=== PATIENT | female | born 1935 | race Caucasian/White ===

== ENCOUNTER 2018-12-23 12:16 | Observation (INO) | payer MEDICARE ==
[~2018-12-23] VITALS: Ht 152.4 cm; Wt 81.6 kg
[2018-12-23] MEDS ORDERED: BETA BLOCKER (12:24)
[2018-12-23] MEDS ORDERED: PLAVIX (12:24)
[2018-12-23] MEDS ORDERED: ASPIRIN (12:24)
[2018-12-23] MEDS ORDERED: DILANTIN (12:24)
[2018-12-23] MEDS ORDERED: LIDOCAINE 1%-EPI 1:100K, 20ML INFIL ONE (12:30)
[2018-12-23] MEDS ORDERED: DIPH,PERTUSS(ACELL),TET VAC/PF 0.5 ML IM-VACC ONE ×2 (12:30→12:38)
[2018-12-23] MEDS ORDERED: LIDOCAINE-MPF 1%, 5ML ONE (12:38)
[2018-12-23] MEDS ORDERED: ACETAMINOPHEN 325 MG TABLET ONE (12:38)
[2018-12-23] MEDS ORDERED: ACETAMINOPHEN 325 MG TABLET PO ONE (13:00)
--- NOTE | 2018-12-23 13:19 | NUR ---
ALL RESULTS BACK AT THIS TIME. CHART UP FOR RECHECK.
--- NOTE | 2018-12-23 14:36 | NUR ---
MULTIPLE RNs AND TECHS ATTEMPTING IV AT THIS TIME.
--- NOTE | 2018-12-23 14:37 | NUR ---
PT TO ED FOR MGLF. LAC TO LEFT EYEBROW. -LOC OR DIZZINESS. +BLOOD THINNERS, PLAVIX AND ASA. LAC SUTURES COMPLETE.
--- NOTE | 2018-12-23 15:01 | NUR ---
PT RESTING IN [facility]. VSS. LAB AT TO DRAW. STILL UNABLE TO ESTABLISH IV ACCESS.
[2018-12-23 15:23] LABS: ALBUMIN 3.9 g/dL (3.4-5.0); ANION GAP 6 mmol/L (5-15); CALCIUM 8.8 mg/dL (8.5-10.1); CHLORIDE 98 mmol/L (98-107); CREATININE 0.69 mg/dL (0.55-1.02)
--- NOTE | 2018-12-23 15:44 | NUR ---
hospitalist pa to bs for assessment. vss. iv established. plan to admit. awaiting room assignment.
[2018-12-23 15:45] LABS: BASOPHILS # (AUTO) 0.03 x10^3/uL (0-0.1); BASOPHILS % (AUTO) 0 % (0-1); EOSINOPHILS # (AUTO) 0.15 x10^3/uL (0-0.4); EOSINOPHILS % (AUTO) 2 % (1-7); LYMPHOCYTES % (AUTO) 16 % (22-44); MD NO; MEAN CORPUSCULAR HEMOGLOBIN 30.3 pg (27.0-34.8); MEAN CORPUSCULAR HGB CONC 33.3 g/dL (32.4-35.8); MEAN CORPUSCULAR VOLUME 91.1 fL (80-100); MONOCYTES # (AUTO) 0.86 x10^3/uL (0.2-0.8); MONOCYTES % (AUTO) 11 % (2-9); NEUTROPHILS # (AUTO) 5.88 x10^3/uL (1.8-6.8); NEUTROPHILS % (AUTO) 72 % (42-75); PLATELET COUNT 228 x10^3/uL (130-400); RED BLOOD COUNT 5.31 x10^6/uL (3.82-5.3); RED CELL DISTRIBUTION WIDTH 14.6 % (9.6-15.2)
[2018-12-23] MEDS ORDERED: SODIUM CHLORIDE 0.9% 1,000 ML IV SCH (16:13)
[2018-12-23 16:14] LABS: PROTHROMBIN TIME 10.5 Seconds (9.6-11.5)
[2018-12-23] MEDS ORDERED: ENALAPRILAT 1.25 MG/ML, 2ML IVPush PRN (16:30)
[2018-12-23] MEDS ORDERED: LABETALOL 5MG/ML, 20ML IVPush PRN (16:30)
[2018-12-23] MEDS: PLEASE ENTER ALLERGIES MC SCH (17:00)
--- NOTE | 2018-12-23 17:02 | NUR ---
pt resting in room. vss. no needs expressed. call light within reach. awaiting room assignment.
--- NOTE | 2018-12-23 18:13 | NUR ---
break rn: pt resting on gurney. no c/o pain. no needs requested at this time. pt a&ox4. no acute distress noted.
--- NOTE | 2018-12-23 18:23 | NUR ---
BREAK RN: REPORT JOVITA BUCK. ALL QUESTIONS ANSWERED.
[2018-12-23 19:38] VITALS: BP 144/85
[2018-12-23 20:55] VITALS: BP 142/88
[2018-12-23] MEDS ORDERED: METO25TA35 PO (22:27)
[2018-12-23] MEDS ORDERED: CHOL400C11 PO (22:27)
[2018-12-23] MEDS ORDERED: AMLO10TA8 PO (22:27)
[2018-12-23] MEDS ORDERED: ATOR40TA78 PO (22:27)
[2018-12-23] MEDS ORDERED: PANT40TA5 PO (22:27)
[2018-12-23] MEDS ORDERED: PHEN100C PO (22:27)
[2018-12-23] MEDS ORDERED: HYDR12.517 PO (22:27)
[2018-12-23] MEDS ORDERED: CLOP75TA PO (22:27)
[2018-12-23 23:57] VITALS: BP 128/67
[2018-12-24] MEDS: PLEASE ENTER ALLERGIES MC SCH ×2 (01:00→07:23)
[2018-12-24 01:14] VITALS: BP 149/82
[2018-12-24] MEDS ORDERED: PHEN100C PO (01:29)
[2018-12-24] MEDS ORDERED: PHENYTOIN 200 MG HOMEMEDPO SCH (01:30)
[2018-12-24 02:13] VITALS: BP 144/85
[2018-12-24 06:12] LABS: BASOPHILS # (AUTO) 0.03 x10^3/uL (0-0.1); BASOPHILS % (AUTO) 0 % (0-1); EOSINOPHILS # (AUTO) 0.12 x10^3/uL (0-0.4); EOSINOPHILS % (AUTO) 2 % (1-7); LYMPHOCYTES # (AUTO) 1.03 x10^3/uL (1-3.4); LYMPHOCYTES % (AUTO) 16 % (22-44); MD NO; MEAN CORPUSCULAR HGB CONC 33.3 g/dL (32.4-35.8); MEAN PLATELET VOLUME 7.5 fL (7.4-10.4); MONOCYTES # (AUTO) 0.84 x10^3/uL (0.2-0.8); MONOCYTES % (AUTO) 13 % (2-9); NEUTROPHILS # (AUTO) 4.63 x10^3/uL (1.8-6.8); NEUTROPHILS % (AUTO) 70 % (42-75); PLATELET COUNT 225 x10^3/uL (130-400); RED BLOOD COUNT 4.77 x10^6/uL (3.82-5.3); RED CELL DISTRIBUTION WIDTH 14.8 % (9.6-15.2)
[2018-12-24 06:24] LABS: ANION GAP 7 mmol/L (5-15); CALCIUM 8.5 mg/dL (8.5-10.1); CHLORIDE 103 mmol/L (98-107); CREATININE 0.52 mg/dL (0.55-1.02)
[2018-12-24 07:42] VITALS: BP 153/84
[2018-12-24] MEDS ORDERED: ONDANSETRON 2MG/ML, 2ML IVPush PRN (08:30)
[2018-12-24] MEDS ORDERED: ACETAMINOPHEN 325 MG TABLET PO PRN (08:30)
[2018-12-24] MEDS ORDERED: POTASSIUM CHLORIDE 20 MEQ TAB.ER.PRT PO ONE (08:30)
[2018-12-24] MEDS ORDERED: LACTOBACILLUS CHEW TABLET PO SCH (09:00)
[2018-12-24] MEDS ORDERED: PHENYTOIN 100 MG CAPSULE PO SCH ×2 (09:00→21:00)
[2018-12-24] MEDS ORDERED: PANTOPROZOLE 40MG TABLET PO SCH (09:00)
[2018-12-24] MEDS ORDERED: ACID1TAB7 PO (13:00)
[2018-12-24 13:18] VITALS: BP 124/64
== END 2018-12-24 16:00 | disposition home or self-care (01) ==
LOC: ED 14:28 → INTOOBSV 15:20 → EDIP 15:20 → 4EST 19:00 → DCLOUNGE 12-24 15:35
PROVIDERS: ADMIT Internal Medicine; ATTEND Internal Medicine
DX: S06.6X0A Traumatic subarachnoid hemorrhage without loss of consciousness, initial encounter (principal); S01.112A Laceration without foreign body of left eyelid and periocular area, initial encounter; R11.0 Nausea; I25.10 Atherosclerotic heart disease of native coronary artery without angina pectoris; E78.5 Hyperlipidemia, unspecified; I10 Essential (primary) hypertension; K21.9 Gastro-esophageal reflux disease without esophagitis; E87.1 Hypo-osmolality and hyponatremia; R56.9 Unspecified convulsions; E87.6 Hypokalemia; W01.0XXA Fall on same level from slipping, tripping and stumbling without subsequent striking against object, initial encounter; Y93.89 Activity, other specified; Y92.89 Other specified places as the place of occurrence of the external cause; Z23 Encounter for immunization; Z79.02 Long term (current) use of antithrombotics/antiplatelets; Z79.82 Long term (current) use of aspirin; Z79.899 Other long term (current) drug therapy; Z90.710 Acquired absence of both cervix and uterus; Z90.49 Acquired absence of other specified parts of digestive tract; Z90.89 Acquired absence of other organs; Z95.5 Presence of coronary angioplasty implant and graft; Z88.0 Allergy status to penicillin; Z91.013 Allergy to seafood
CPT/HCPCS: 12011; 36415; 70450; 80048; 80185; 82040; 83735; 84100; 85025; 85610; 85730; 90471; 90715; 93005; 93798; 96374; 97162; 97166; 99291; G0378; J2405; J3490; J7030

== ENCOUNTER 2020-04-26 12:02 | Day surgery (SDC) | payer MEDICARE ==
[~2020-04-26] VITALS: Ht 152.4 cm; Wt 71.7 kg
[~2020-04-26 12:02] MED LIST: ACID1TAB7 PO; AMLO10TA8 PO; ASPIRIN; ATOR40TA78 PO; BETA BLOCKER; BUPIVACAINE/PF 0.25% ONE; CHOL400C11 PO; CLOP75TA PO; DILANTIN; HYDR12.517 PO; METO25TA35 PO; NEOMY/POLYMYXIN B GU IRR. 1 ML ONE; PANT40TA6 PO; PHEN100C PO; PLAVIX
[2020-04-26] MEDS ORDERED: CHLORHEXIDINE 15 ML UDC MM ONE (12:30)
[2020-04-26] MEDS ORDERED: CLOP75TA PO (12:34)
[2020-04-26] MEDS ORDERED: POLY17PO5 PO (12:34)
[2020-04-26] MEDS ORDERED: PHEN100T90 PO (12:34)
[2020-04-26] MEDS ORDERED: POTA99TA24 PO (12:34)
[2020-04-26] MEDS ORDERED: CHLORHEXIDINE 15 ML UDC ONE (12:39)
[2020-04-26 12:59] VITALS: BP 140/80
[2020-04-26] MEDS ORDERED: LACTATED RINGERS 1,000 ML IV SCH (13:00)
[2020-04-26] MEDS ORDERED: PLEASE ENTER HEIGHT AND WEIGHT MC SCH (13:00)
[2020-04-26 13:36] LABS: BASOPHILS % (AUTO) 0 % (0-1); EOSINOPHILS % (AUTO) 2 % (1-7); LYMPHOCYTES % (AUTO) 24 % (22-44); MEAN CORPUSCULAR HEMOGLOBIN 29.4 pg (27.0-34.8); MEAN CORPUSCULAR HGB CONC 33.1 g/dL (32.4-35.8); MEAN PLATELET VOLUME 6.2 fL (7.4-10.4); MONOCYTES % (AUTO) 11 % (2-9); NEUTROPHILS % (AUTO) 64 % (42-75); PLATELET COUNT 444 x10^3/uL (130-400); RED BLOOD COUNT 4.28 x10^6/uL (3.82-5.3); RED CELL DISTRIBUTION WIDTH 14.7 % (9.6-15.2)
[2020-04-26 13:40] LABS: MD NO
[2020-04-26 13:45] LABS: ANION GAP 8 mmol/L (5-15); CALCIUM 8.8 mg/dL (8.5-10.1); CHLORIDE 110 mmol/L (98-107)
[2020-04-26] MEDS ORDERED: FENTANYL PF 250 MCG/5ML ONE (14:01)
[2020-04-26] MEDS ORDERED: DEXAMETHASONE 4 MG/ML, 1ML ONE ×2 (14:02→14:47)
[2020-04-26] MEDS ORDERED: CEFAZOLIN 1,000 MG ONE (14:05)
[2020-04-26] MEDS ORDERED: ROCURONIUM 10 MG/ML,10ML ONE (14:05)
[2020-04-26] MEDS ORDERED: ONDANSETRON 2MG/ML, 2ML ONE ×2 (14:47)
[2020-04-26] MEDS ORDERED: SUCCINYLCHOLINE 20 MG/ML, 10ML ONE (14:48)
[2020-04-26] MEDS ORDERED: PROPOFOL 10 MG/ML, 20ML ONE (14:48)
[2020-04-26] MEDS ORDERED: MEPERIDINE/PF 25MG/0.5ML IVPush PRN (15:00)
[2020-04-26] MEDS ORDERED: ACETAMINOPHEN 325 MG TABLET PO PRN (15:00)
[2020-04-26] MEDS ORDERED: ONDANSETRON 2MG/ML, 2ML IVPush PRN (15:00)
[2020-04-26] MEDS ORDERED: FENTANYL PF 100 MCG/2ML IV PRN (15:00)
[2020-04-26] MEDS ORDERED: hydrALAzine 20 MG/ML, 1ML IV PRN (15:00)
[2020-04-26] MEDS ORDERED: DIPHENHYDRAMINE 50 MG/ML, 1ML IVPush PRN (15:00)
[2020-04-26] MEDS ORDERED: MIDAZOLAM 1 MG/ML, 2ML IV PRN (15:00)
[2020-04-26] MEDS ORDERED: LABETALOL 5MG/ML, 20ML IV PRN (15:00)
[2020-04-26] MEDS ORDERED: PROMETHAZINE 12.5 MG SUPP PR PRN (15:00)
[2020-04-26] MEDS ORDERED: PROMETHAZINE 25 MG/ML, 1ML IVPush PRN (15:00)
[2020-04-26] MEDS ORDERED: DIAZEPAM 5 MG/ML, 2ML IVPush PRN (15:00)
[2020-04-26] MEDS ORDERED: EPHEDRINE 50 MG/ML, 1ML IVPush PRN (15:00)
[2020-04-26] MEDS ORDERED: HYDROmorphone 1 MG/ML, 1ML INJ IVPush PRN (15:00)
[2020-04-26] MEDS ORDERED: ALBUTEROL SULFATE 2.5 MG/3 ML NPPB PRN (15:00)
[2020-04-26] MEDS ORDERED: FENTANYL PF 100 MCG/2ML ONE (15:15)
[2020-04-26] MEDS ORDERED: OXYcodone 5 MG/5 ML ORAL.SOL UDC ONE ×2 (15:16→15:53)
[2020-04-26] MEDS: OXYcodone 5 MG/5 ML ORAL.SOL UDC PO PRN ×2 (15:19→15:57)
[2020-04-26] MEDS ORDERED: DIAZEPAM 5 MG TABLET ONE (15:40)
[2020-04-26] MEDS ORDERED: ACETAMINOPHEN 650 MG/20.3 ML UDC ONE (15:53)
[2020-04-26] MEDS ORDERED: DIAZEPAM 5 MG/ML, 10ML VIAL IV PRN (16:00)
[2020-04-26] MEDS ORDERED: DIAZEPAM 5 MG/ML, 2ML IV PRN (16:00)
== END 2020-04-26 18:00 | disposition home or self-care (01) ==
LOC: OUT 12:02
PROVIDERS: ATTEND Obstetrics & Gynecology Female Pelvic Medicine and Reconstructive Surgery
DX: N81.89 Other female genital prolapse (principal); Z20.828 Contact with and (suspected) exposure to other viral communicable diseases; N39.46 Mixed incontinence; N81.11 Cystocele, midline; N81.5 Vaginal enterocele; N81.6 Rectocele; R10.2 Pelvic and perineal pain; I25.10 Atherosclerotic heart disease of native coronary artery without angina pectoris; E78.5 Hyperlipidemia, unspecified; K21.9 Gastro-esophageal reflux disease without esophagitis; K59.09 Other constipation; F41.1 Generalized anxiety disorder; F32.9 Major depressive disorder, single episode, unspecified; G47.33 Obstructive sleep apnea (adult) (pediatric); E66.09 Other obesity due to excess calories; Z79.82 Long term (current) use of aspirin; Z79.02 Long term (current) use of antithrombotics/antiplatelets; Z79.899 Other long term (current) drug therapy; Z85.3 Personal history of malignant neoplasm of breast; Z86.718 Personal history of other venous thrombosis and embolism; Z88.0 Allergy status to penicillin; Z91.013 Allergy to seafood; Z91.041 Radiographic dye allergy status; Z90.49 Acquired absence of other specified parts of digestive tract; Z90.710 Acquired absence of both cervix and uterus; Z90.722 Acquired absence of ovaries, bilateral; Z95.5 Presence of coronary angioplasty implant and graft; Z98.890 Other specified postprocedural states
CPT/HCPCS: 36415; 57265; 57282; 57288; 80048; 85025; 87635; 93005; C1771; J0330; J0690; J1100; J2405; J2704; J3010; J3490

== ENCOUNTER 2020-06-07 10:25 | Emergency (ER) | payer MEDICARE ==
[~2020-06-07] VITALS: Ht 152.4 cm; Wt 72.5 kg
[~2020-06-07 10:25] MED LIST changes: +AMLO-211 PO; -AMLO10TA8 PO; -BUPIVACAINE/PF 0.25% ONE; -NEOMY/POLYMYXIN B GU IRR. 1 ML ONE; +PHEN100T90 PO; +POLY17PO5 PO; +POTA99TA24 PO
[2020-06-07 11:08] VITALS: BP 146/85
[2020-06-07] MEDS ORDERED: OXYMETAZOLINE NASAL SPRAY 0.05%,30ML ONE (11:23)
[2020-06-07] MEDS ORDERED: OXYMETAZOLINE NASAL SPRAY 0.05%, 15ML NAS ONE (11:30)
== END 2020-06-07 12:47 | disposition home or self-care (01) ==
LOC: ED 12:20
DX: R04.0 Epistaxis (principal); R51.9 Headache, unspecified; I10 Essential (primary) hypertension; Z79.899 Other long term (current) drug therapy
CPT/HCPCS: 99282

== ENCOUNTER 2020-07-19 21:26 | Emergency (ER) | payer MEDICARE ==
[~2020-07-19] VITALS: Ht 154.9 cm; Wt 74.0 kg
[2020-07-19] MEDS ORDERED: SILVER NITRATE STICK TP ONE (21:56)
[2020-07-19] MEDS ORDERED: PHENYLEPHRINE NASAL 1%, 15ML SPRAY ONE (21:56)
--- NOTE | 2020-07-19 22:30 | NUR ---
PT RESTING IN BED. PT IS ON MONITOR WITH VSS. PT STATED THAT SHE PICKED HER RIGHT NOSTRIL WITH HER FINGER AND IT STATRED TO BLEED. PT STATED SAME THING HAPPENED A COUPLE MONTHS BACK.
--- NOTE | 2020-07-19 23:14 | NUR ---
PT RESTING IN BED PT HAS NO CURRENT WANTS OR NEEDS, PT ON MONITOR WITH VSS
[2020-07-19 23:15] VITALS: BP 132/88
== END 2020-07-19 23:35 | disposition home or self-care (01) ==
LOC: ED 21:47
DX: R04.0 Epistaxis (principal); I10 Essential (primary) hypertension
CPT/HCPCS: 30901; 99284